=== PATIENT | male | born 1995 | race Caucasian/White ===

== ENCOUNTER 2017-11-10 08:10 | Emergency (ER) | payer BC ==
--- NOTE | 2017-11-10 08:13 | ER Report ---
History and Physical Time Seen By MD: 08:11 HPI/ROS CHIEF COMPLAINT: Right lower quadrant abdominal pain HISTORY OF PRESENT ILLNESS: Patient is a 22-year-old male who presents to emergency department with right-sided lower quadrant abdominal pain that began around 3 AM this morning. More severe at onset and currently states pain is 4 out of 10 in intensity. He denies any palliative or provoking features. He states he had similar pain approximately one year ago not quite as intense and it resolved on its own. He denies any fevers or chills. He denies any prior abdominal surgeries. Last meal was around midnight last evening. REVIEW OF SYSTEMS: Constitutional: No fever, no chills. Eyes: No discharge. ENT: No sore throat. Cardiovascular: No chest pain, no palpitations. Respiratory: No cough, no shortness of breath. Gastrointestinal: Right lower quadrant abdominal pain, no nausea, no vomiting, no diarrhea Genitourinary: No hematuria. No dysuria Musculoskeletal: No back pain. Skin: No rashes. Neurological: No headache. Allergies: Coded Allergies: No Known Drug Allergies (Unverified , 11/10/17) Home Meds Reported Medications Cetirizine Hcl (ZYRTEC) 10 Mg Capsule, 10 MG PO QDAY, CAPSULE 11/10/17 Past Medical/Surgical History Prior history of right total hip replacement Constitutional Vital Sign - Last 24 Hours 11/10/17 08:14 Temp 97.9 Pulse 70 Resp 16 B/P (MAP) 136/101 Pulse Ox 98 O2 Delivery Room Air Physical Exam General Appearance: Awake in no acute respiratory distress Eyes: Pupils equal and round no pallor or injection. ENT, Mouth: Mucous membranes are moist. Respiratory: There are no retractions, lungs are clear to auscultation. Cardiovascular: Regular rate and rhythm. Gastrointestinal: Abdomen is soft and non tender, no masses, bowel sounds normal. Patient does report some pain to the right lower quadrant with palpation but there are no peritoneal signs noted no guarding, voluntary or involuntary no rebound tenderness elicited. No flank tenderness Neurological: Awake and alert Skin: Warm and dry, no rashes. Musculoskeletal: Neck is supple non tender. Extremities are nontender, nonswollen and have full range of motion. Medical Decision Making Data Points Result Diagram: 11/10/17 0811/10/17824 Laboratory Hematology Test 11/10/17 08:25 11/10/17 08:41 Red Blood Count 6.33 M/uL (4.00-5.60) Mean Corpuscular Volume 86.1 fL (80.0-96.0) Mean Corpuscular Hemoglobin 29.8 pg (26.0-33.0) Mean Corpuscular Hemoglobin Concent 34.5 g/dL (32.0-36.0) Red Cell Distribution Width 13.7 % (11.5-14.5) Mean Platelet Volume 7.9 fL (7.2-11.1) Neutrophils (%) (Auto) 47.3 % (39.4-72.5) Lymphocytes (%) (Auto) 39.0 % (17.6-49.6) Monocytes (%) (Auto) 11.4 % (4.1-12.4) Eosinophils (%) (Auto) 1.5 % (0.4-6.7) Basophils (%) (Auto) 0.8 % (0.3-1.4) Nucleated RBC Relative Count (auto) 0.1 /100WBC Neutrophils # (Auto) 3.2 K/uL (2.0-7.4) Lymphocytes # (Auto) 2.6 K/uL (1.3-3.6) Monocytes # (Auto) 0.8 K/uL (0.3-1.0) Eosinophils # (Auto) 0.1 K/uL (0.0-0.5) Basophils # (Auto) 0.1 K/uL (0.0-0.1) Nucleated RBC Absolute Count (auto) 0.01 K/uL Sodium Level 144 mmol/L (137-145) Potassium Level 3.9 mmol/L (3.5-5.0) Chloride Level 104 mmol/L (98-107) Carbon Dioxide Level 24 mmol/L (22-30) Blood Urea Nitrogen 18 mg/dl (9-21) Creatinine 1.00 mg/dl (0.66-1.25) Glomerular Filtration Rate Calc > 60.0 Random Glucose 83 mg/dl (75-110) Calcium Level 9.5 mg/dl (8.4-10.2) Total Bilirubin 1.2 mg/dl (0.2-1.3) Aspartate Amino Transf (AST/SGOT) 38 U/L (0-35) Alanine Aminotransferase (ALT/SGPT) 52 U/L (0-56) Alkaline Phosphatase 79 U/L (0-126) Total Protein 8.1 g/dl (6.3-8.2) Albumin 4.6 g/dl (3.5-5.0) Lipase 48 U/L (23-300) Urine Color Yellow Urine Clarity Clear Urine pH 5.0 pH (4.8-9.5) Urine Specific [place] 1.024 Urine Protein Negative mg/dL (NEGATIVE) Urine Glucose (UA) Negative mg/dL (NEGATIVE) Urine Ketones Negative mg/dL (NEGATIVE) Urine Blood Negative (NEGATIVE) Urine Nitrite Negative (NEGATIVE) Urine Bilirubin Negative (NEGATIVE) Urine Urobilinogen Negative mg/dL (0.2-1.9) Urine Leukocyte Esterase Negative (NEGATIVE) Urine RBC None /HPF (0-2/HPF) Urine WBC 1 /HPF (0-5/HPF) Urine Squamous Epithelial Cells None /LPF (</=FEW) Urine Bacteria Negative /HPF (NONE-FEW) Urine Mucus None /HPF (NONE-FEW) Chemistry Test 11/10/17 08:25 11/10/17 08:41 White Blood Count 6.7 k/uL (4.5-11.0) Red Blood Count 6.33 M/uL (4.00-5.60) Hemoglobin 18.8 g/dL (14.0-18.0) Hematocrit 54.5 % (42.0-52.0) Mean Corpuscular Volume 86.1 fL (80.0-96.0) Mean Corpuscular Hemoglobin 29.8 pg (26.0-33.0) Mean Corpuscular Hemoglobin Concent 34.5 g/dL (32.0-36.0) Red Cell Distribution Width 13.7 % (11.5-14.5) Platelet Count 252 K/uL (150-450) Mean Platelet Volume 7.9 fL (7.2-11.1) Neutrophils (%) (Auto) 47.3 % (39.4-72.5) Lymphocytes (%) (Auto) 39.0 % (17.6-49.6) Monocytes (%) (Auto) 11.4 % (4.1-12.4) Eosinophils (%) (Auto) 1.5 % (0.4-6.7) Basophils (%) (Auto) 0.8 % (0.3-1.4) Nucleated RBC Relative Count (auto) 0.1 /100WBC Neutrophils # (Auto) 3.2 K/uL (2.0-7.4) Lymphocytes # (Auto) 2.6 K/uL (1.3-3.6) Monocytes # (Auto) 0.8 K/uL (0.3-1.0) Eosinophils # (Auto) 0.1 K/uL (0.0-0.5) Basophils # (Auto) 0.1 K/uL (0.0-0.1) Nucleated RBC Absolute Count (auto) 0.01 K/uL Glomerular Filtration Rate Calc > 60.0 Calcium Level 9.5 mg/dl (8.4-10.2) Total Bilirubin 1.2 mg/dl (0.2-1.3) Aspartate Amino Transf (AST/SGOT) 38 U/L (0-35) Alanine Aminotransferase (ALT/SGPT) 52 U/L (0-56) Alkaline Phosphatase 79 U/L (0-126) Total Protein 8.1 g/dl (6.3-8.2) Albumin 4.6 g/dl (3.5-5.0) Lipase 48 U/L (23-300) Urine Color Yellow Urine Clarity Clear Urine pH 5.0 pH (4.8-9.5) Urine Specific [place] 1.024 Urine Protein Negative mg/dL (NEGATIVE) Urine Glucose (UA) Negative mg/dL (NEGATIVE) Urine Ketones Negative mg/dL (NEGATIVE) Urine Blood Negative (NEGATIVE) Urine Nitrite Negative (NEGATIVE) Urine Bilirubin Negative (NEGATIVE) Urine Urobilinogen Negative mg/dL (0.2-1.9) Urine Leukocyte Esterase Negative (NEGATIVE) Urine RBC None /HPF (0-2/HPF) Urine WBC 1 /HPF (0-5/HPF) Urine Squamous Epithelial Cells None /LPF (</=FEW) Urine Bacteria Negative /HPF (NONE-FEW) Urine Mucus None /HPF (NONE-FEW) Urinalysis Test 11/10/17 08:41 Urine Color Yellow Urine Clarity Clear Urine pH 5.0 pH (4.8-9.5) Urine Specific [place] 1.024 Urine Protein Negative mg/dL (NEGATIVE) Urine Glucose (UA) Negative mg/dL (NEGATIVE) Urine Ketones Negative mg/dL (NEGATIVE) Urine Blood Negative (NEGATIVE) Urine Nitrite Negative (NEGATIVE) Urine Bilirubin Negative (NEGATIVE) Urine Urobilinogen Negative mg/dL (0.2-1.9) Urine Leukocyte Esterase Negative (NEGATIVE) Urine RBC None /HPF (0-2/HPF) Urine WBC 1 /HPF (0-5/HPF) Urine Squamous Epithelial Cells None /LPF (</=FEW) Urine Bacteria Negative /HPF (NONE-FEW) Urine Mucus None /HPF (NONE-FEW) EKG/Imaging Imaging ED scan of the abdomen and pelvis is negative. ED Course/Re-evaluation Clinical Indication for ER IV: IV Access ED Course 11/10/2017 8:42:25 am patient with right lower quadrant abdominal pain. No gua rding or rebound tenderness elicited. Bedside ultrasound was performed which revealed normal appearance of the right kidney. At this time will be CBC CMP lipase urinalysis and CT scan of the abdomen and pelvis. Patient was offered pain medication as well as nausea medication both of which at this time he declined. Decision to Disposition Date: Nov 10, 2017 Decision to Disposition Time: 09:47 Depart Departure Latest Vital Signs Vital Signs Date Time Temp Pulse Resp B/P (MAP) Pulse Ox O2 Delivery O2 Flow Rate FiO2 11/10/17 08:14 97.9 70 16 136/101 98 Room Air Impression: Primary Impression: Abdominal pain Condition: Improved Disposition: HOME OR SELF-CARE Departure Forms: ER Transition Record, Medications Reconciliation, Off Work/School Form, School or Work Release?: School Number of days to be released: 1 Patient Portal Information Patient Instructions: Acute Abdominal Pain (ED) Additional Instructions: Follow-up routinely with your primary care provider. If your symptoms worsen at any time or he develop new symptoms such as fever, vomiting or diarrhea you s hould be reevaluated in the emergency department immediately. Problem Qualifiers Primary Impression: Abdominal pain Abdominal location: right lower quadrant Qualified Codes: R10.31 - Right lower quadrant pain LARA GALAVIZ MD Nov 10, 2017 08:13
[2017-11-10] MEDS ORDERED: CETI10CA8 PO (08:18)
[2017-11-10] MEDS ORDERED: NS(*) 0.9% 1000 ML BAG 1,000 ML IV ONE (08:35)
[2017-11-10 08:39] LABS: PLATELET COUNT, AUTOMATED 252 K/uL (150-450)
[2017-11-10] MEDS ORDERED: IOPAMIDOL 76% 75 ML INFUS BTL 75 ML ONE (08:46)
--- NOTE | 2017-11-10 09:44 | RADIOLOGY IMAGING REPORT ---
FACILITY: [facility] PATIENT NAME: Maikel Miranda : 1995 MR: [id number] V: [id number] EXAM DATE: ORDERING PHYSICIAN: LARA GALAVIZ TECHNOLOGIST: Location: [facility] - [place] Patient: Maikel Miranda : 1995 Visit/Account:[id number] Date of Sevice: 11/10/2017 ABDOMEN/PELVIS WITH CONTRAST Additional pertinent History: Right lower quadrant pain since midnight TECHNIQUE: Spiral scan was through the abdomen and pelvis during injection of nonionic iodinated in travenous contrast. Contrast: 75 mL of IV Isovue-[id number]. One of the following dose optimization techniques was utilized in the performance of this exam: Autom ated exposure control; adjustment of the mA and/or kV according to the patient's size; or use of an i terative reconstruction technique. Specific details can be referenced in the facility's radiology C T exam operational policy. COMPARISON STUDIES: none. FINDINGS: Liver / biliary: No focal liver lesions. Gallbladder unremarkable Pancreas: negative Spleen: negative Adrenal glands: negative Kidneys / retroperitoneum: No renal stone or renal obstructive uropathy change. Symmetric nephrogram s bilaterally GI: No colonic bowel edema or inflammation. Appendix well visualized without evidence of appendiciti s (image 92 through 109 series 2). The distal esophagus, stomach, duodenum, small bowel unremarkable . Pelvic structures: Pelvic images obscured somewhat from spray artifact from a prosthetic right hip . No free fluid. No pelvic mass lesions. Vessels: negative Musculoskeletal / Body wall: negative Lymph node assessment: negative Lower chest: negative IMPRESSION: 1.. Negative CT scan of the abdomen and pelvis for acute pathology. Specifically, no evidence one o f appendicitis. Report Dictated By: Reji Koch MD at 11/10/2017 9:29 AM Report E-Signed By: Reji Koch MD at 11/10/2017 9:40 AM WSN:[email or web address]
[2017-11-10 09:52] VITALS: BP 138/79
== END 2017-11-10 09:57 | disposition home or self-care (01) ==
LOC: ER 08:19
DX: R10.31 Right lower quadrant pain (principal)
CPT/HCPCS: 74177; 81001; 83690; 85025; 96360; 99284; J7030; Q9967; 82040; 82247; 82310; 82374; 82435; 82565; 82947; 84075; 84132; 84155; 84295; 84450; 84460; 84520